=== PATIENT | female | born 1990 | race Caucasian/White ===

== ENCOUNTER 2023-05-09 21:42 | Inpatient (IN) | payer MEDICAID, SELFPAY ==
[2023-05-09 20:58] VITALS: PULSE 82; O2SAT 98
[2023-05-09 21:04] VITALS: BP 112/78; PULSE 90
[2023-05-09 21:16] LABS: Amnisure Rom* POSITIVE
[2023-05-09 21:41] VITALS: BMI 30.9
[2023-05-09 22:00] VITALS: RESP 16; TEMP 36.9
[2023-05-09 22:59] VITALS: RESP 16; TEMP 36.8
[2023-05-09 23:00] VITALS: BP 91/52; PULSE 69
[2023-05-10] VITALS (72 sets, daily range): BP systolic 95–150; BP diastolic 56–102; PULSE 64–133; RESP 16; TEMP 36.6–37.2; O2SAT 90–100
[2023-05-10] MEDS: miSOPROStoL 25 MCG/0.25 TABLET PO ×2 (01:35→03:22)
--- NOTE | 2023-05-10 09:14 | PM.OBHPLI ---
OB - H&P: HPI Labor/Induction History of Present Illness Time Seen by Provider: 09:14 Date Seen: 05/10/23 Chief Complaint: The patient is a 33 year old 2 para 0 at 40.2 weeks gestation by LMP and consistent with early ultrasound, who presents with SROM at 1999 on 05/09/23. Patient was admitted after positive amnisure. Chief complaint: OB : 2 Para: 1 Date of last menstrual period: 08/01/22 Estimated date of delivery: 05/08/23 Gestational age based on last menstrual period: 40 Narrative: Nancy Arevalo is a 33 year old female who presents after SROM of clear fluid at home at 199905/09/2023. She was initially thought to be 2 cm, however, recheck at midnight was closed, thick, high. Cytotec was given x 2 and patient has been bharath since. Most recent SVE by nursing is 1.5/75/0 History of Present Dating criteria: based on LMP care: good care Ultrasounds: normal 1st trimester US and normal mid trimester US (Level 2 ultrasound done for AMA) Medical complications: none Labs Blood type: O (+) positive Rubella: immune RPR/VDLR: nonreactive GBS status: negative HBsAG: negative Review of Systems Status of ROS: Reports: 10 or more systems reviewed and unremarkable except as noted in History and below Meds Home Medications and Allergies Home Medications Medication Instructions Recorded Confirmed Type No Known Home Medications 05/10/23 05/10/23 History Allergies Allergy/AdvReac Type Severity Reaction Status Date / Time No Known Drug Allergies Allergy Verified 05/10/23 00:41 OB - H&P: Exam Physical Exam: Vital signs: Temp Pulse Resp BP Pulse Ox 97.9 F 93 16 131/84 98 05/10/23 08:40 05/10/23 08:40 05/10/23 08:40 05/10/23 08:40 05/09/23 20:58 Constitutional: Constitutional: mild distress Comments: appears very uncomfortable with contractions Routine HEENT Exam: Head: Present atraumatic and normal inspection ENT: Present mucous membranes moist Routine Neck Exam: Neck: Present full ROM Routine Chest/Breast/Axilla Exam: Chest wall: Absent tenderness Routine Respiratory Exam: Respiratory: Present CTA bilaterally Routine Cardiovascular Exam: Cardiovascular: RRR, S1 and S2 Detailed Labor and Delivery Exam: Patient Gravid: Yes Dilation (cm): 1 Effacement (%): 75 Cervix position: mid Consistency: medium Cervical ripeness score: 8 Contraction frequency (min): 2 Contraction intensity: Strong/Firm Fetus (Single): Station: 0 Amniotic Membrane Status: SROM Amniotic Membrane Fluid Description: Clear Heart Rate Baseline: 120 Monitor Accelerations: Present Monitor Decelerations: None Usp Variability: Moderate (6-25) Routine Back/Spine/Pelvis Exam: Back/Spine: full ROM Routine Skin Exam: Present intact Routine Neurological Exam: Present alert and oriented X3 Routine Psychiatric Exam: Present normal affect OB - Problem Based A/P Additional Plan (1) Rupture of membranes with clear amniotic fluid: Problem details: at 1999 on 05/09/23 Status: Acute (2) Term : Status: Acute (3) Advanced maternal age (AMA) in : Problem details: had normal Level 2 ultrasound Status: Acute Plan Patient received 2 doses of cytotec. Has been bharath painfully since. GOMEZ score now 8. Will continue to monitor. if needed, will start IV pitocin, none needed at this time. Delivery/Labor/Induction Plan Plan: induction Induction method: other (pitocin if needed. )
[2023-05-10] MEDS: LACTATED RINGERS 1000 ML 1,000 ML 1200 ML IV ×2 (09:18→10:04)
[2023-05-10] MEDS: ROPIVACAINE 0.2% 100 ml 100 ML 12 MG EPIDURAL (09:41)
[2023-05-10] MEDS: ROPIVACAINE 0.2 % PF 10 ML INJ 20 MG EPIDURAL (09:41)
[2023-05-10] MEDS: PHENYLEPHRINE 100 MCG/ML SYRINGE IVP (10:30)
--- NOTE | 2023-05-10 10:34 | A.ANBPCNMD_ITS ---
[facility] Medical History (Updated 05/10/23 @ 09:25 by Cris Clemens MD) IBS (irritable bowel syndrome) ?K58.9 - Irritable bowel syndrome without diarrhea (ICD-10) Pyelonephritis ?N12 - Tubulo-interstitial nephritis, not specified as acute or chronic (ICD- 10) Varicella ?B01.9 - Varicella without complication (ICD-10) Surgical History (Updated 05/10/23 @ 09:25 by Cris Clemens MD) [place] teeth extracted ?K08.409 - Partial loss of teeth, unspecified cause, unspecified class (ICD- 10) Social History What is your current living situation?: I presently have a place to live Problems where you live: no known problems In the past 12 months, utilities in danger of being shut off: no In past 12 months, lack of transportation kept you from medical appts, meetings, work, or getting things needed for daily living: no In the past 12 mos, have been you worried that your food would run out before you had money to buy more?: never true In the past 12 mos, the food you bought just didn't last and you didn't have money to buy more?: never true Smoking Status: Former smoker How often does anyone, including family, friends and others, physically hurt you : never How often does anyone, including family, friends and others, insult or talk down to you: never How often does anyone, including family, friends and others, threaten you with harm: never How often does anyone, including family, friends and others, scream or curse at you: never Meds Home Medications and Allergies Home Medications Medication Instructions Recorded Confirmed Type No Known Home Medications 05/10/23 05/10/23 History Allergies Allergy/AdvReac Type Severity Reaction Status Date / Time No Known Drug Allergies Allergy Verified 05/10/23 00:41 Results Labs Labs: Laboratory Results - last 24 hr 05/09/23 21:11 Membrane Rupture POSITIVE Vital Signs Vital Signs: Last Vital Signs Temp 97.8 F 05/10/23 09:40 Pulse 64 05/10/23 10:32 Resp 16 05/10/23 09:40 BP 141/83 H 05/10/23 10:32 Pulse Ox 100 05/10/23 09:37 Weight: 76.657 kg Height: 157.48 cm Anesthesia Procedures - MDA Epidural Insertion Patient Location: OB Start Time: 09:20 Stop Time: 10:20 Start Date: 05/10/23 Stop Date: 05/10/23 Reason for Block: primary anesthetic Patient Position: sitting Performed By: Pj Prasad Preanesthetic Checklist: IV checked, risks and benefits discussed, surgical consent, monitors and equipment checked, pre-op evaluation, timeout performed and anesthesia consent Prep: chlorhexidine gluconate Monitoring: blood pressure monitoring, monitoring tech, continuous pulse oximetry and heart rate Approach: midline Vertebral Space: lumbar (1-5) Needle Type: Tuohy needle Injection Technique: continuous catheter (catheter) Needle gauge: 17 Needle Length (cm): 10 cm Needle Insertion Depth (cm): 5 Catheter Gauge: 19 Catheter Type: multi-orifice Catheter at skin depth (cm): 11 Test Dose Result: negative and lidocaine 1.5% with epinephrine 1 to 200,000
[2023-05-10] MEDS: LACTATED RINGERS 1000 ML 1,000 ML 125 ML IV (15:00)
--- NOTE | 2023-05-10 18:01 | PM.OBPNL ---
Subjective Time Seen by Provider: 18:01 Date Seen: 05/10/23 Narrative: Patient has progressed well throughout the day. Received epidural for analgesia with good relief. She did not require pitocin. She had some occasional late decels, resolved with position changes. Objective Exam: Appears comfortable. Vital Signs: Last Vital Signs Temp 98.4 F 05/10/23 17:00 Pulse 82 05/10/23 17:47 Resp 16 05/10/23 17:00 BP 131/88 05/10/23 17:47 Pulse Ox 100 05/10/23 09:37 Pelvic Exam Dilation (cm): 9.5 Effacement (%): 95 Station: -2 Contractions Monitor mode: External Contraction Frequency: 3 Contraction pattern: Regular Contraction intensity: Strong/Firm Pitocin Rate (mU/min): 0 Assessment Assessment: active labor Station: +2 Amniotic Membrane Status: SROM Heart Rate Baseline: 35 Monitor Accelerations: Present Monitor Decelerations: None Tracing Comments: Late decels resolved with position changes Plan Plan: - has had 2 elevated bp >140/90. Not in treatable range. Will check labs, monitor blood pressure. She has no symptoms of preeclampsia. Further plan based on results.
[2023-05-10] MEDS: ROPIVACAINE 0.2% 100 ml 100 ML 9 MG EPIDURAL (18:11)
[2023-05-10 18:25] LABS: Hematocrit 38.1 % (33.0-51.0); Mean Corpuscular HGB Conc 34 gm/dL (32-36); Mean Corpuscular Hemoglobin 32 pg (26-34); Mean Corpuscular Volume 93 fL (80-100); Platelet Count* 196 K/uL (140-440); Red Blood Count 4.09 m/uL (4.00-5.20); White Blood Count* 15.87 K/uL (4.50-11.00)
[2023-05-10 18:29] LABS: Slide Review Reflex No
[2023-05-10 18:38] LABS: Alanine Aminotransferase* 20 U/L (4-35); Aspartate Amino Transferase* 31 U/L (12-35); Blood Urea Nitrogen* 10 mg/dL (5-24); Creatinine* 0.7 mg/dL (0.5-1.5); Est. Creatinine Clearance* 88.72; Estimated Glomerular Filt Rate 116 ml/min
[2023-05-10] MEDS: LIDOCAINE 2% (PF) 5 ML VIAL 3 ML EPIDURAL (19:12)
[2023-05-10] MEDS: LIDOCAINE 2% (PF) 5 ML VIAL 2.5 ML EPIDURAL (20:28)
[2023-05-10] MEDS: OXYTOCIN 30 unit/500 ML in NS 30 UNIT/500 ML BAG 325 UNIT IVPB (21:50)
[2023-05-10] MEDS: LIDOCAINE 1 % PF 30 ML INJECTION (22:05)
--- NOTE | 2023-05-10 22:18 | W.PM.OBVAGDE ---
OB Procedure Vag Delivery Mother Details Mother Details: The patient is a 33 year-old, 2, Para 1, admitted on 05/09/23 at 40w1d gestation with SROM. : 2 Para: 0 Weeks Gestation: 40.2 Admission Date: 05/09/23 Additional Details Amniotic Membrane Status: SROM Amniotic Membrane Rupture Date: 05/09/23 Amniotic Membrane Rupture Time: 20:00 Amniotic Membrane Fluid Description: Clear Analgesia/Anesthesia Type: Epidural Waterbirth: No Pitcoin: No Intrapartal Events: None Induction Method: per misoprostol protocol Labor Onset: 03:30 Complete: 21:02 Pushin:09 Heart: heart tones during second stage were category 2. Did have some variable decels with contractions/pushing Delivery Details Delivery Date: 05/10/23 Delivery Time: 21:49 Route of delivery: Infant Gender: Female Viability: Alive; Heart Rate Present Position at Delivery: OA Delivery Details: Patient was admitted for SROM. Was closed, thick, high. Received cytotec x 2 and then progressed without further intervention. She received epidural for analgesia. Was 9 cm for several hours, then reduced anterior lip over 3 pushes becoming complete at 2102. She pushed very effectively and Delivered over intact perineum via spontaneous vaginal delivery. was placed on maternal abdomen.? Cord was clamped and cut after a 30-60 second delay. Nose and mouth were bulb suctioned.? weight pending. 1 Minute Interval Total Score: 8 5 Minute Interval Total Score: 9 Additional Details Shoulder Dystocia: No Placenta Delivery Time: 21:55 Placental Delivery Description: Spontaneous Delivery repair: Vicryl Procedure Done: Global Blood Loss: 250 Laceration: Vaginal - 2nd Degree Blood Loss Measurement Type: QBL Bakri Used: No Sponge/Need Count Correct: Yes Cord Vessel Description: 3 Vessels Event Summary Status: Mother and were stable after delivery. Disposition: no change
[2023-05-10] MEDS: IBUPROFEN 600 MG TABLET PO (23:31)
[2023-05-11] VITALS (7 sets, daily range): BP systolic 111–138; BP diastolic 70–93; PULSE 85–90; RESP 14–16; TEMP 36.4–37.2; O2SAT 97–98
[2023-05-11] MEDS: ACETAMINOPHEN 500 MG TABLET 1000 MG PO ×2 (04:14→10:22)
--- NOTE | 2023-05-11 07:54 | P.OBPN_ITS ---
OB - PN:Subj Subjective Time Seen by Provider: 07:54 Date Seen: 05/11/23 Patient comments OB post-: no complaints, pain well controlled and tolerating diet [place] infant status: and doing well [place] feeding status: exclusively OB - PN: Obj Exam Physical Exam: Vital signs: Temp Pulse Resp BP Pulse Ox 97.6 F 85 14 137/88 100 05/11/23 04:09 05/11/23 04:09 05/11/23 04:09 05/11/23 04:09 05/10/23 22:32 Constitutional: Constitutional: no acute distress Routine HEENT Exam: Head: Present atraumatic and normal inspection ENT: Present mucous membranes moist Routine Neck Exam: Neck: Present full ROM Routine Respiratory Exam: Respiratory: Present CTA bilaterally Routine Cardiovascular Exam: Cardiovascular: Present RRR; Absent murmur Routine Abdominal Exam: Abdominal: Present soft; Absent tenderness Fundus: Present firm Routine Extremities Exam: Extremities: Absent calf tenderness or pedal edema Routine Back/Spine/Pelvis Exam: Back/Spine: Present full ROM Routine Neurological Exam: Neurological: Present alert and oriented X3 OB - PN: Obj Data Labs Labs: Laboratory Results - last 24 hr 05/10/23 05/11/23 18:03 06:55 WBC 15.87 H RBC 4.09 Hgb 13.0 10.0 L Hct 38.1 MCV 93 MCH 32 MCHC 34 Plt Count 196 BUN 10 Creatinine 0.7 Estimated Creat Clear 88.72 Estimated GFR 116 AST 31 ALT 20 OB - PN: A/P Delivery Assessment and Plan (1) Term : Status: Acute (2) Advanced maternal age (AMA) in : Problem details: had normal Level 2 ultrasound Status: Acute (3) Gestational hypertension: Problem details: Had elevated bp during labor and pushing. Normal labs, no symptoms of preeclampsia. BP has been within normal limits following delivery. Status: Acute Assessment and Plan: - monitor bp (4) (normal spontaneous vaginal delivery): Status: Acute Plan day: 1 Plan: routine care
[2023-05-11] MEDS: IBUPROFEN 600 MG TABLET PO ×2 (08:07→14:37)
[2023-05-11] MEDS: DOCUSATE SODIUM 100 MG CAPSULE PO (08:08)
--- NOTE | 2023-05-11 13:57 | PM.ANPOST ---
Post Anesthesia Note Post Anesthesia Note Patient seen: Inpatient Respiratory Status: adequate Cardiovascular Status: adequate Mental Status: baseline Pain: adequate Temp: baseline Anesthetic awareness: N/A Complications: none Follow care: none
[2023-05-12 01:58] VITALS: BP 113/76; PULSE 85; RESP 18; TEMP 36.6; O2SAT 97
[2023-05-12 06:01] VITALS: BP 115/61; PULSE 85; RESP 18; TEMP 37.1; O2SAT 97
--- NOTE | 2023-05-12 07:31 | P.DS_ITS ---
DS: Providers Provider Time Seen by Provider: 07:00 Date Seen: 05/12/23 Date of admission: 05/09/23 21:42 Primary care physician: Cris Clemens MD Admitting Clinician: Cris Clemens MD Attending Physician on discharge: Cris Clemens MD Date of Discharge: 05/12/23 DS: Diagnosis Discharge Diagnosis (1) Gestational hypertension: Status: Acute Problem details: Had elevated bp during labor and pushing. Normal labs, no symptoms of preeclampsia. BP has been within normal limits following delivery. (2) (normal spontaneous vaginal delivery): Status: Acute (3) Advanced maternal age (AMA) in : Status: Acute Problem details: had normal Level 2 ultrasound (4) Term : Status: Acute Exam Const: Vital Signs, click to edit/add: Vital Signs - 24 hr 05/11/23 08:44 05/11/23 09:23 05/11/23 12:36 Temperature 97.6 F 97.8 F Pulse Rate [Blood Pressure Cuff] 86 90 Respiratory Rate 16 16 Blood Pressure [Ri ght Arm] 135/93 H 115/78 124/82 Pulse Oximetry 97 97 Oxygen Delivery Me thod Room Air Room Air 05/11/23 18:00 05/11/23 20:42 05/12/23 01:58 Temperature 98.0 F 98.9 F 97.9 F Pulse Rate [Blood Pressure Cuff] 85 85 85 Respiratory Rate 16 16 18 Blood Pressure [Ri ght Arm] 111/70 125/74 113/76 Pulse Oximetry 98 98 97 Oxygen Delivery Me thod Room Air Room Air Room Air 05/12/23 06:01 Temperature 98.7 F Pulse Rate [Blood Pressure Cuff] 85 Respiratory Rate 18 Blood Pressure [Ri ght Arm] 115/61 Pulse Oximetry 97 Oxygen Delivery Me thod Room Air Common normals: no apparent distress HENMT: Common normals: normocephalic Head and scalp: normocephalic Neck & C-Spine: Common normals: full ROM Resp: Common normals: normal respiratory effort and clear to auscultation bilaterally Auscultation: clear to auscultation bilaterally Cardio: Common normals: regular rate, regular rhythm and no murmurs Rate: regular rate Rhythm: regular rhythm GI: Common normals: Normal to inspection, nondistended, normoactive bowel sounds present and soft to palpation Palpation: soft : Uterus: U/2 and firm Psych: Common normals: speech normal Speech: normal speech OB - DS: Summary Hospital Course Hospital Course: The patient is a 33 year old G 2 P 1 at 40.2 weeks gestation that was admitted to the Center on 05/09/23 for SROM. She developed gestational hypertension during labor. She had an uncomplicated vaginal delivery. She delivered a viable female . She is breast feeding. the patient has done well. Peripartum Data Infant delivery method: Vaginal Laceration description: Vaginal - 2nd Degree complications: none [place] Gender: Female Discharge Plan: Home Status at Discharge Functional status at discharge: independent ambulation Overall status at discharge: patient is back to baseline Time Spent with Patient Time attestation: Total time spent providing and/or coordinating discharge services: Time spent: Less than 30 minutes Discharge Plan Discharge Disposition: Home, Self-Care Date of Admission: 05/09/23 21:42 Attending Provider on Discharge: Cris Clemens Primary Care Provider: Cris Clemens Condition: Stable Anticipated Discharge Date/Time: 05/12/23 10:00 Discharge Medications: No Action No Known Home Medications Discharge Orders: Discharge Order (Routine); Ordered 05/12/23 Ordered By: Cris Clemens Consulting provider completed their portion of the discharge: No Patient Education: OB Over the Counter Medication Information, OB Vaginal/Breast Feeding Additional Instructions: Please schedule 6 week visit Please monitor blood pressure at home. Call if blood pressure is over 135/90 at home. Pelvic rest for 6 weeks--- Nothing in the Vagina Activity Level: No Restrictions Activity Detail: Pelvic rest x 6 weeks-- nothing in vagina Discharge Diet: Regular Follow Up Appointments: Cris Clemens MD [Primary Care Provider] - Forms: [email or web address] Info Instructions Discharge Comments: Please schedule check 6 weeks post-delivery Please monitor blood pressure at home. Call if BP >135/90 at home.
[2023-05-12 08:25] VITALS: BP 120/73; PULSE 84; RESP 16; TEMP 36.6; O2SAT 97
== END 2023-05-12 11:00 | disposition home or self-care (01) | DRG 807 ==
LOC: OB OUT 21:43 → OB 21:43
PROVIDERS: Admitting Provider Family Medicine; PCP Family Medicine; Visit Provider Family Medicine
DX: O13.4 Gestational [pregnancy-induced] hypertension without significant proteinuria, complicating childbirth (principal); Z37.0 Single live birth; Z3A.40 40 weeks gestation of pregnancy; O70.1 Second degree perineal laceration during delivery
CPT/HCPCS: 01967; 36415; 59200; 82565; 84112; 84450; 84460; 84520; 85018; 85027; A9270; J2001; J2371; J2795; J7120